=== PATIENT | male | born 1975 | race Caucasian/White ===

== ENCOUNTER 2021-02-13 15:29 | Inpatient (IN) | payer OTHER ==
[2021-02-13] VITALS (78 sets, daily range): BP systolic 115–144; BP diastolic 67–89; PULSE 80–91; TEMP 97.7–98.3; O2SAT 92–100
[~2021-02-13] VITALS: Ht 170.2 cm; Wt 79.9 kg
[~2021-02-13 15:29] MED LIST: PRILOSEC; PRILOSEC 20MG20 MG PO
[2021-02-13 15:50] LABS: BASO # 0.1 K/mm3 (0.0-0.2); BASO % 0.7 % (0.0-2.0); EOS # 0.1 K/mm3 (0.0-0.7); EOS % 1.4 % (0-4.0); GRAN # 4.3 K/mm3 (1.4-6.5); GRAN % 55.4 % (42.2-75.2); HEMATOCRIT 49.2 % (42.0-52.0); HEMOGLOBIN 17.2 g/dl (13.5-18.0); LYMPH # 2.4 K/mm3 (1.2-3.4); LYMPH % 30.6 % (20.0-51.0); MEAN CELL VOLUME 91 fl (80.0-100.0); MEAN CORPUSCULAR HEMOGLOBIN 32 pg (27.0-31.0); MEAN CORPUSCULAR HGB CONC 35 g/dl (33.0-37.0); MEAN PLATELET VOLUME 10.6 fl (7.4-10.4); MONO # 0.9 K/mm3 (0.1-0.6); MONO % 11.6 % (1.7-9.3); PLATELET COUNT 220 K/mm3 (130-400); RED BLOOD COUNT 5.42 M/mm3 (4.20-5.60); REDCELL DISTRIBUTION WIDTH-CV 12.2 % (11.5-14.5)
[2021-02-13 16:13] LABS: ALANINE AMINOTRANSFERASE 26 U/L (0-55); ALBUMIN 4.5 gm/dL (3.5-5.0); ALKALINE PHOSPHATASE 57 U/L (40-150); ANION GAP 11 mmol/L (7-16); AST,SGOT 21 U/L (5-34); BILIRUBIN,TOTAL 1.7 mg/dL (0.2-1.2); BLOOD UREA NITROGEN 20 mg/dL (9-21); CALCIUM 9.7 mg/dL (8.4-10.2); CARBON DIOXIDE 24 mmol/L (22-29); CHLORIDE 104 mmol/L (98-107); GLUCOSE 100 mg/dL (70-99); POTASSIUM 3.7 mmol/L (3.5-4.5); SODIUM 139 mmol/L (136-145)
[2021-02-13 16:19] LABS: TROPONIN-I < 0.010 ng/mL (0.00-0.033)
[2021-02-13 16:30] LABS: CREATININE, serum 1.06 mg/dL (0.72-1.25)
[2021-02-13 16:52] LABS: INR 1.1 (0.8-3.0); PROTHROMBIN TIME 11.9 SECONDS (9.7-12.8)
[2021-02-13 16:55] LABS: PARTIAL THROMBOPLASTIN TIME 28.4 SECONDS (26.0-37.0)
--- NOTE | 2021-02-13 21:16 | NUR ---
Arrival to ICU at 2104
[2021-02-13] MEDS ORDERED: ONE-A-DAY ESSE1 EACH PO (21:20)
--- NOTE | 2021-02-13 22:46 | NUR ---
Assessment complete upon patient arrive at 210. Patient alert and orientated. All questions answered. Orientated to room and hospital. Denies needs. Call light in reach.
[2021-02-14] VITALS (331 sets, daily range): BP systolic 122–141; BP diastolic 78–100; PULSE 62–108; TEMP 97.5–98.7; O2SAT 91–99
[2021-02-14 05:16] LABS: BASO % 0.5 % (0.0-2.0); EOS # 0.2 K/mm3 (0.0-0.7); GRAN # 3.5 K/mm3 (1.4-6.5); HEMATOCRIT 49.8 % (42.0-52.0); HEMOGLOBIN 17.5 g/dl (13.5-18.0); LYMPH # 2.2 K/mm3 (1.2-3.4); LYMPH % 32.9 % (20.0-51.0); MEAN CELL VOLUME 91 fl (80.0-100.0); MEAN CORPUSCULAR HEMOGLOBIN 32 pg (27.0-31.0); MEAN CORPUSCULAR HGB CONC 35 g/dl (33.0-37.0); MEAN PLATELET VOLUME 10.5 fl (7.4-10.4); MONO # 0.8 K/mm3 (0.1-0.6); MONO % 11.3 % (1.7-9.3); PLATELET COUNT 193 K/mm3 (130-400); RED BLOOD COUNT 5.47 M/mm3 (4.20-5.60); REDCELL DISTRIBUTION WIDTH-CV 12.3 % (11.5-14.5)
[2021-02-14 06:06] LABS: CALCIUM 9.3 mg/dL (8.4-10.2); CHOLESTEROL RISK RATIO 3.9; CREATININE, serum 0.95 mg/dL (0.72-1.25); POTASSIUM 3.7 mmol/L (3.5-4.5)
--- NOTE | 2021-02-14 06:14 | NUR ---
Patient cardene turned off at 0206. Patient headache resolved. Blood pressures within normal limits. Resting in bed this AM. Denies needs. Call light in reach.
--- NOTE | 2021-02-14 07:00 | NUR ---
PT RESTING IN BED. CARDENE OFF SINCE 199. PT'S VSS. [facility]
--- NOTE | 2021-02-14 07:09 | NUR ---
Report given to ALYX Rodríguez
--- NOTE | 2021-02-14 09:00 | NUR ---
CONSULT CALLED TO .
--- NOTE | 2021-02-14 10:31 | NUR ---
REPORT CALLED TO [facility] WISDOM. ALL QUESTION ANSWERED. WILL TRANSFER UP AFTER BREAKFAST.
--- NOTE | 2021-02-14 11:09 | NUR ---
PT TRANSFERED UPSTAIRS TO ROOM 347 BY WHEELCHAIR. PT ORIENTED TO ROOM AND CALL LIGHT. [facility] NOTIFIED OF ARRIVAL/
--- NOTE | 2021-02-14 14:00 | NUR ---
SW met with patient on surgical floor to complete intake. Patient recently transfered from ICU. Patient states that he lives in [place], [place] with spouse Paul [phone]. Patient provides that he does not utilize DME, is indendent with ADL's, does not have and extablished PCP, pharmacy is [facility], and spouse has been appointed as DPOA-HC. Patient states that his plan is to return to his [place]. SW will continue to follow. DC Plan: home with spouse
--- NOTE | 2021-02-14 14:19 | NUR ---
Report from I[facility] nurse. Patient has been sitting up in chair watching Whatever football game. Tyelnol relieved his headache. Bp holding steady, still lightly elevated. Will monitor.
--- NOTE | 2021-02-14 16:15 | NUR ---
Patient resting in bed. Vss. Questions about see cardilogy, I called Dr. Garcia. He reports he saw patient already. I informed the patient of this. He was unaware that was who had seen him. Patient tolerated lunch. Will monitor.
--- NOTE | 2021-02-14 17:59 | NUR ---
Patient resting in bed. ice water provided. sydnie huitron. Will report off to nightnurse
--- NOTE | 2021-02-14 20:00 | NUR ---
Report received, assumed care for privacy compliance manager. Assessment complete. A&Ox4. Denies pain/nausea/shortness of breath. VS reamin stable-BP WNL. States the headache is gone. Plan of care discussed for this shift to include medications/monitoring VS/calling for questions/concerns. Verbalizes understanding/denies needs. Call light in reach. Will monitor.
--- NOTE | 2021-02-15 00:10 | NUR ---
Resting in bed watching TV. VS remain stable. Denies pain/shortness of breath/nausea. Denies current needs. Call light in reach. Will monitor.
[2021-02-15 04:14] VITALS: BP 123/80; PULSE 63; TEMP 97.6
--- NOTE | 2021-02-15 05:42 | NUR ---
Had a very uneventful night. VS remained stable. Denied headache/pain/nausea/shortness of breath. States he is just ready to go home and he is "riding out his time." Denies current needs. Call light in reach. Will monitor.
--- NOTE | 2021-02-15 07:00 | NUR ---
Report received from ALYX Calzada. Pt in bed resting ,sydnie huitron, will continue to monitor.
[2021-02-15 08:55] VITALS: BP 133/96; PULSE 70; TEMP 98.1
--- NOTE | 2021-02-15 10:28 | NUR ---
Assessment charted. Pt feeling well, would like to discharge today. Denies pain or other needs, will continue to monitor.
[2021-02-15] MEDS ORDERED: NORVASC 5MG5 MG/TAB PO (11:19)
[2021-02-15] MEDS ORDERED: PRINIVIL10 MG PO (11:19)
[2021-02-15 12:21] VITALS: BP 130/93; PULSE 87
--- NOTE | 2021-02-15 13:15 | NUR ---
Discharge teaching completed at this time. Confirmed with hospitalist pt able to drive self home. Reviewed discharge packet, home meds and new meds, f/u appointments. Faxed Jose f/u to office and Cheri with SW will call tomorrow with f/u for new PCP. INT dc'd, tip intact. Pt escorted out by myself, left with all belongings, criteria met.
--- NOTE | 2021-02-16 09:33 | NUR ---
coffee plantation worker contacted [facility] this morning and made a hospital follow up appointment for the patient. Patient is scheduled for Tuesday 02/[address] Cardenas. Phone call made to the patient and message left. Clinical information faxed to [facility].
== END 2021-02-15 13:17 | disposition home or self-care (01) | DRG 305 ==
LOC: COL.ER 15:29 → ICU 18:37 → SURG 02-14 11:33
PROVIDERS: Family Medicine; Nurse Practitioner Family
DX: I16.0 Hypertensive urgency (principal); J81.1 Chronic pulmonary edema; I10 Essential (primary) hypertension; Z87.891 Personal history of nicotine dependence
CPT/HCPCS: 99222-AI; 99232-AI; 99239; J7050

== ENCOUNTER 2021-04-02 12:46 | Day surgery (SDC) | payer OTHER ==
[2021-04-02] VITALS (10 sets, daily range): BP systolic 111–128; BP diastolic 81–94; PULSE 65–92; TEMP 98.7
[~2021-04-02] VITALS: Ht 170.2 cm; Wt 80.3 kg
[~2021-04-02 12:46] MED LIST changes: +NORVASC 5MG5 MG/TAB PO; +ONE-A-DAY ESSE1 EACH PO; +PRINIVIL10 MG PO
[2021-04-02 13:10] LABS: HEMATOCRIT 47.4 % (42.0-52.0); HEMOGLOBIN 16.9 g/dl (13.5-18.0); MEAN CELL VOLUME 88 fl (80.0-100.0); MEAN CORPUSCULAR HEMOGLOBIN 31 pg (27.0-31.0); MEAN CORPUSCULAR HGB CONC 36 g/dl (33.0-37.0); MEAN PLATELET VOLUME 10.1 fl (7.4-10.4); PLATELET COUNT 209 K/mm3 (130-400); RED BLOOD COUNT 5.39 M/mm3 (4.20-5.60); REDCELL DISTRIBUTION WIDTH-CV 12.3 % (11.5-14.5)
[2021-04-02] MEDS ORDERED: ASPIRIN E.C. 8181 MG PO (13:16)
[2021-04-02] MEDS ORDERED: PLAVIX 75MG TAB75 MG PO (13:16)
[2021-04-02 13:20] LABS: PROTHROMBIN TIME 11.1 SECONDS (9.7-12.8)
[2021-04-02 13:22] LABS: PARTIAL THROMBOPLASTIN TIME 30.3 SECONDS (26.0-37.0)
[2021-04-02 13:24] LABS: CALCIUM 9.3 mg/dL (8.4-10.2); CREATININE, serum 0.92 mg/dL (0.72-1.25); POTASSIUM 3.9 mmol/L (3.5-4.5)
--- NOTE | 2021-04-02 16:17 | NUR ---
SEE MERGE FOR ALL MEDICATION ADMINISTRATION TIMES, INTRA AND POST SEDATION ASSESSMENTA
--- NOTE | 2021-04-02 16:49 | NUR ---
PT back from labor economics professor, neg heart cath. TR band to rt wrist, cms intact distal. no complaints. pt updated on poc. dinner ordered. call light in reach. NSR on monitor.
--- NOTE | 2021-04-02 19:25 | NUR ---
Pt ready for departure at this time. TR band has been removed with no problem. site dressed with bandaid, folded 2x2 and coban. cms intact distal. i reviewed dc/rx and fu instructions with pt and . pt is amb with steady gait, no dizziness etc. iv dc'd with cath intact dressing applied. Pt escorted amb to exit with .
== END 2021-04-02 19:45 | disposition home or self-care (01) ==
LOC: COL.CAR 12:46
PROVIDERS: Internal Medicine Interventional Cardiology
DX: R07.9 Chest pain, unspecified (principal); I10 Essential (primary) hypertension; R94.39 Abnormal result of other cardiovascular function study; R68.89 Other general symptoms and signs; Z79.899 Other long term (current) drug therapy
CPT/HCPCS: J1644; J2250; J3010